=== PATIENT | female | born 1965 | race Caucasian/White ===

== ENCOUNTER 2021-11-04 08:44 | Outpatient (CLI) | payer OTHER, SELFPAY ==
--- NOTE | 2021-11-04 09:15 | CRLHL7_ITS ---
For Patients: As a result of the Century Cures Act, medical imaging exams and procedure reports are released immediately into your electronic medical record. You may view this report before your referring provider. If you have questions, please contact your health care provider. Examination / Procedure: Ultrasound guided right breast mass biopsy. Comparison: Right breast ultrasound 10/29/2021 and mammogram 10/29/2021. Technique: The procedure, risks, and alternative therapies were discussed in detail, and written informed consent was obtained. A time out was performed to verify correct patient and procedure. Patient was not able to stop Xarelto. Increased risk of bleeding was discussed with the patient. The patient was placed supine on the table. Initial ultrasound of the right breast was performed. The irregular spiculated right breast mass at the 9 o`clock position was identified with ultrasound. The biopsy site was localized. A juvenal was made on the patient`s skin. The site was prepped and draped in the usual sterile fashion. All elements of maximum sterile barrier technique were used. Soft tissues were anesthetized with 1% lidocaine. Under real time sonographic guidance, an 18 gauge biopsy needle was advanced into the mass. Five core biopsies were performed under continuous ultrasound guidance and placed in formalin. A biopsy marker was placed within the mass. Patient was taken to mammography suite for post clip placement mammogram. Please see separate report for details. The patient tolerated the procedure well without immediate postprocedural complication. Impression: Successful ultrasound guided right breast mass biopsy. Dictated by Enrique Hinojosa MD @ 11/04/2021 10:10:48 AM ----ADDENDUM---- ADDENDUM: Pathology results of RIGHT breast 9 o`clock 8 cm from the nipple ultrasound-guided core biopsy demonstrate invasive lobular carcinoma. Pathology results were reviewed with imaging findings and found concordant. Surgical and oncological management per referring physician. JACKLYN CARRILLO M.D. Diagnostic/Breast Radiologist [email or web address] FIFI/saud D& Transcribed: 3:03 p.m. ----ADDENDUM---- ADDENDUM: ACR not applicable CRL:[email or web address] (Electronically Signed)
--- NOTE | 2021-11-04 10:00 | CRLHL7_ITS ---
For Patients: As a result of the Cures Act, medical imaging exams and procedure reports are released immediately into your electronic medical record. You may view this report before your referring provider. If you have questions, please contact your health care provider. RIGHT DIAGNOSTIC POST-BIOPSY MAMMOGRAM FOR CLIP PLACEMENT CLINICAL HISTORY: Post clip placement mammogram. TECHNIQUE: RIGHT CC and ML post-clip 2D mammogram. COMPARISON FILM: Mammograms 10/29/2021. FINDINGS: Spiculated mass in the outer RIGHT breast at the 8 to 9 o`clock position. Biopsy clip is within the spiculated mass. IMPRESSION: Biopsy clip is within the spiculated mass. ACR not applicable A lay language report of this examination will be provided to the patient. Enrique Hinojosa M.D. Diagnostic/Musculoskeletal Radiologist [email or web address] jj/Dictated by: Enrique Hinojosa MD @ 11/04/2021 10:17:00 AM (Electronically Signed)
== END 2021-11-04 08:45 | disposition home or self-care (01) ==
PROVIDERS: Visit Provider Family Medicine
DX: N63.10 Unspecified lump in the right breast, unspecified quadrant (principal); C50.911 Malignant neoplasm of unspecified site of right female breast; R92.8 Other abnormal and inconclusive findings on diagnostic imaging of breast
CPT/HCPCS: 19083; 76942; 77065; 88305; 88360; 88361; A4648; A4649

== ENCOUNTER 2021-11-05 13:55 | Outpatient (RCR) | payer OTHER, SELFPAY | END 2021-11-09 23:59 | disposition home or self-care (01) | LOC: CCIC 13:55 | PROVIDERS: Visit Provider Clinical Nurse Specialist | DX: Z45.2 Encounter for adjustment and management of vascular access device (principal) | CPT/HCPCS: 99211 ==

== ENCOUNTER 2021-11-18 08:33 | Outpatient (CLI) | payer OTHER, SELFPAY | END 2021-11-18 08:34 | disposition home or self-care (01) | LOC: AMB 11-30 20:19 | PROVIDERS: Visit Provider Family Medicine | DX: R53.1 Weakness (principal); R55 Syncope and collapse; T85.838A Hemorrhage due to other internal prosthetic devices, implants and grafts, initial encounter | CPT/HCPCS: A0425; A0427 ==

== ENCOUNTER 2021-11-18 09:11 | Day surgery (SDC) | payer OTHER, SELFPAY ==
[2021-11-18] VITALS (39 sets, daily range): BP systolic 76–148; BP diastolic 46–86; PULSE 52–80; RESP 12–28; TEMP 35.7–37.6; O2SAT 93–98; BMI 36.9
[2021-11-18] MEDS: 0.9 % SODIUM CHLORIDE 1000 ml 1,000 ML IV (09:40)
--- NOTE | 2021-11-18 09:59 | CRLHL7_ITS ---
For Patients: As a result of the Century Cures Act, medical imaging exams and procedure reports are released immediately into your electronic medical record. You may view this report before your referring provider. If you have questions, please contact your health care provider. Indication: S/P RT MASTECTOMY 11/17/21 FALL. BLEEDING Technique: Postcontrast CT chest, abdomen and pelvis. 100 cc Isovue 370 intravenous contrast. Please note that all CT scans at this facility use dose modulation, iterative reconstruction, and/or weight-based dosing when appropriate to reduce radiation dose to as low as reasonably achievable. Comparison: None Findings: In the chest, postoperative changes of right mastectomy are present including expected mild subcutaneous emphysema. A right lateral approach drainage catheter is present within the subcutaneous fat of the right anterior hemithorax. Intact Port-A-Cath. There is a right lateral chest wall hematoma measuring 13.3 x 2.9 cm in transverse dimensions. This appears to connect to a more superior collection of ill-defined fluid near the upper right chest wall measuring 3.6 cm. There is no underlying rib fracture. No pneumothorax or pulmonary infiltrate. Mild dependent atelectasis noted in both lung bases. No mediastinal, hilar or left axillary adenopathy. Postoperative changes of right axillary lymph node dissection are present. No pleural or pericardial effusion. In the abdomen/pelvis, mild hepatic steatosis. No intrahepatic lesion. Gallbladder normal. Normal adrenal glands and kidneys. Normal spleen and pancreas. Incidental small hiatal hernia. No retroperitoneal or mesenteric adenopathy. Small 1 centimeter umbilical hernia containing fat. Fonseca catheter in the bladder. Mild colonic diverticulosis. No diverticulitis. No bowel obstruction or free intraperitoneal air. The appendix is normal. A right lower quadrant abdominal wall hernia is present containing fat measuring 2.3 cm located just lateral to the inferior rectus muscles. Mild degenerative changes are present. No fracture. Impression: Right chest wall subcutaneous hematoma status post mastectomy 1 day prior. Hematoma measures approximately 13.3 cm and extends into the right upper chest wall. No underlying rib fracture or pleural effusion. No traumatic injury to the abdomen or pelvis. 2.3 centimeter fat filled spigelian hernia on the right. Small hiatal hernia and umbilical hernia also noted. Reviewed with Dr. Moreno 12:30 p.m. 11/18/2021. Please note that all CT scans at this facility use dose modulation, iterative reconstruction, and/or weight-based dosing when appropriate to reduce radiation dose to as low as reasonably achievable. Dictated by Manpreet De León MD @ 11/18/2021 12:38:56 PM (Electronically Signed)
--- NOTE | 2021-11-18 09:59 | CRLHL7_ITS ---
For Patients: As a result of the Century Cures Act, medical imaging exams and procedure reports are released immediately into your electronic medical record. You may view this report before your referring provider. If you have questions, please contact your health care provider. INDICATION: Fall and Bleeding TECHNIQUE: Chest 1 view COMPARISON: 07/26/2019 FINDINGS: Cardiovascular and mediastinum: Heart size and vasculature are normal in caliber and appearance. Lungs and pleural spaces: Lungs are clear. No sign of infiltrate or mass. No sign of pleural effusion. No pneumothorax. Bones and soft tissues: Right internal jugular approach port catheter is present. Postop changes to the right axilla. IMPRESSION: No acute findings. Dictated by Manpreet De León MD @ 11/18/2021 11:25:13 AM (Electronically Signed)
--- NOTE | 2021-11-18 09:59 | CRLHL7_ITS ---
For Patients: As a result of the Century Cures Act, medical imaging exams and procedure reports are released immediately into your electronic medical record. You may view this report before your referring provider. If you have questions, please contact your health care provider. Indication: Fall, brain cancer status post mastectomy Technique: Volumetric multidetector CT images of the head were obtained without the administration of low osmolar intravenous contrast. Comparison: CT head July 31, 2020 Findings: There is no intra-axial or extra-axial fluid collection. There is improved mass effect of the right frontal lobe from comparison exam. There is mild ex vacuo dilatation of the right lateral ventricle. There is a prior craniotomy and likely resection of previously seen right frontal lobe mass with encephalomalacia and peripheral leukomalacia. Otherwise, the brain parenchyma is preserved in attenuation and zamora-white differentiation. The orbits and their contents are grossly within normal limits. Postoperative changes of the right temporal bone status post craniotomy. The paranasal sinuses are clear. The mastoid air cells are well aerated. Impression: Prior craniotomy and encephalomalacia of the right frontal lobe status post resection of previously seen mass. No definite acute intracranial abnormality or new metastatic changes appreciated. Please note that all CT scans at this facility use dose modulation, iterative reconstruction, and/or weight-based dosing when appropriate to reduce radiation dose to as low as reasonably achievable. Dictated by Rafa Goins MD @ 11/18/2021 12:36:34 PM (Electronically Signed)
--- NOTE | 2021-11-18 09:59 | CRLHL7_ITS ---
For Patients: As a result of the Century Cures Act, medical imaging exams and procedure reports are released immediately into your electronic medical record. You may view this report before your referring provider. If you have questions, please contact your health care provider. Indication: Fall Technique: Volumetric multidetector CT images of the cervical spine were obtained without the administration of IV contrast. Comparison: None available. Findings: The cervical vertebral body heights are grossly maintained. There is straightening of the normal cervical lordosis without significant spondylolisthesis. There is no displaced fracture or dislocation. There is mild degenerative disc disease with disc height loss and marginal osteophyte formation. There is mild facet arthrosis. The paraspinous soft tissues are grossly within normal limits. Impression: Mild degenerative changes of the cervical spine without acute osseous abnormality. Please note that all CT scans at this facility use dose modulation, iterative reconstruction, and/or weight-based dosing when appropriate to reduce radiation dose to as low as reasonably achievable. Dictated by Rafa Goins MD @ 11/18/2021 12:33:23 PM (Electronically Signed)
[2021-11-18 10:05] LABS: Eosinophils Percent Auto 0.2 % (0.0-7.0); Hemoglobin* 10.8 gm/dL (12.0-16.0); Immature Granulocytes Abs Auto 0.03 K/uL (0.00-0.30); Lymphocytes Percent Auto 5.7 % (20-44); Mean Corpuscular HGB Conc 33 gm/dL (32-36); Mean Corpuscular Hemoglobin 28 pg (26-34); Mean Corpuscular Volume 86 fL (80-100); Neutrophils Percent Auto 87.9 % (42.0-72.0); Platelet Count* 164 K/uL (140-440); RDW Coefficient of Variation % 13.1 % (11.5-15.5); Red Blood Count 3.83 m/uL (4.00-5.20)
[2021-11-18 10:09] LABS: Chloride* 108 mmol/L (96-114); Potassium* 4.1 mmol/L (3.6-5.1); Slide Review Reflex No; Sodium* 138 mmol/L (135-149); White Blood Count* 12.27 K/uL (4.50-11.00)
[2021-11-18 10:11] LABS: Creatinine* 0.7 mg/dL (0.5-1.5); Est. Creatinine Clearance* 78.41; Estimated Glomerular Filt Rate 102 ml/min
[2021-11-18 10:12] LABS: Blood Urea Nitrogen* 23 mg/dL (7-30); Calcium* 8.3 mg/dL (8.4-10.6); Carbon Dioxide* 21 mmol/L (20-32); Glucose* 134 mg/dL (60-115); INR 1.17 (0.91-1.10); Prothrombin Time 15.3 Seconds
[2021-11-18] MEDS: TRANEXAMIC ACID 100 MG/ML INJ 1000 MG IV (10:15)
[2021-11-18 10:22] LABS: Partial Thromboplastin Time* 24 Seconds (23-33)
--- NOTE | 2021-11-18 10:30 | ED.NURSE ---
Fonseca placed by EVER Cid
--- NOTE | 2021-11-18 10:43 | ED.NURSE ---
Dr Moreno at bedside.
--- NOTE | 2021-11-18 11:02 | ED.FALL ---
HPI - Fall General Date Seen: 11/18/21 Chief Complaint: Post Op Complication Stated Complaint: Bleeding Time Seen by Provider: 11/18/21 09:31 Source: patient and family Mode of arrival: EMS Limitations: no limitations History of Present Illness HPI Narrative: Patient is a 55-year-old female who had a syncopal episode at home. She fell on her right side, remembers the fall, or shortly afterwards. She landed on the right side of her chest which unfortunately is where she you underwent a right-sided mastectomy for breast cancer yesterday at [facility]. Her surgeon there was Dr. Solares. She felt faint with pain on the right side of her chest, and her Jesus-Bardales drain started draining bright red blood. It has been empty 14 times since this occurred. For approximately 12-1400 mL. Before this she only emptied it once. She denies any head, neck, abdominal, pelvic or extremity discomfort. Her only pain is on the right side of her chest. She is not nauseous, but did take a hydrocodone after this occurred for the pain. Past medical history of the breast cancer, brain cancer, DVT, anticoagulation but stopped Wednesday last week. With the Xarelto. Onset (ago): minute(s) (Thirty) Fall from: standing Fall witnessed: yes, by family Place fall occurred: home Loss of consciousness: Yes Length of LOC: second(s) Prolonged down time: no and unclear Symptoms prior to fall: lightheadedness and dizziness Context: other (She vehemently denies that this was related to a seizure she does have a history of these) Location of injury: chest Severity: severe Quality: sharp Associated symptoms (after fall): weakness and lightheaded Related Data Home Medications Medication Instructions Recorded Confirmed albuterol sulfate 90 mcg/actuation inhalation 11/18/21 aerosol inhaler (Ventolin HFA) amlodipine 5 mg tablet 5 mg PO DAILY 11/18/21 11/18/21 cephalexin 500 mg capsule mg 11/18/21 levetiracetam 1,000 mg tablet 1,000 mg PO BID 11/18/21 11/18/21 omeprazole 20 mg capsule,delayed 20 mg PO DAILY 11/18/21 11/18/21 release oxycodone 5 mg tablet 5 mg PO PRN 11/18/21 rivaroxaban 20 mg tablet (Xarelto) 20 mg PO Q24H 11/18/21 11/18/21 Allergies Allergy/AdvReac Type Severity Reaction Status Date / Time sulfur [From Sulfur-8] Allergy Unknown Verified 11/04/21 09:47 Review of Systems Status of ROS: Reports: 6 or more systems reviewed and unremarkable except as noted in History and below [facility] Medical History (Updated 11/18/21 @ 12:38 by Aristeo Fisher MD) Arthritis Asthma Breast cancer, right Diverticulitis large intestine GERD (gastroesophageal reflux disease) Glioblastoma Obesity NARGIS (obstructive sleep apnea) Surgical History (Updated 11/18/21 @ 12:38 by Aristeo Fisher MD) S/P craniotomy S/P hysterectomy S/P right mastectomy Status post medial meniscus repair Social History (Updated 11/18/21 @ 12:11 by Bambi Moreno MD) Narrative: 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 She is a former smoker. No alcohol. Smoking Status: Former smoker Do you use any of these nicotine containing products: None Second hand tobacco smoke exposure: No How often do you have a drink containing alcohol: never How many standard drinks containing alcohol do you have on a typical day: 1 or 2 How often do you have six or more drinks on one occasion: Never AUDIT-C Alcohol total score: 0 Non-prescribed substance use: denies use service: No Exam Narrative: Exam Narrative: She is brought into the emergency room initially she was the [facility] in stable 1 trauma room, immediately after arrival. Blood pressures are some soft, but now have come up. She is draining bright red blood out of her NATALIYA drain on the right side of her chest. She is alert and oriented but whenever she sits up she feels dizzy. Underwent surgery yesterday at [facility] same-day surgery and left the hospital. Her pupils are equal round reactive to light her TMs are normal there is no evidence of any trauma over head or neck, her neck has good range of motion. Her mouth is normal with no evidence of any biting of her tongue. Suggestive of seizure. Chest is good air entry bilaterally. Slightly decreased on the right she does splint, she has a large area swelling of just inferior to her right axilla. Consistent with fluid, her surgery line looks intact, with no blood coming out of it, but again the Jesus-Bardales drain has 50 mL my nurses event did this twice and she arrive. And was empty 9 times by EMS. Posterior chest shows no tenderness to palpation, she does have air entry bilaterally, no wheezes or crackles noted, no tenderness to palpation over her cervical thoracic or lumbar spines. Her abdomen is otherwise soft, no guarding a past been no megaly, pelvis is normal stable. Her extremities are all normal moves for full range of motion with normal cap refill and neurologically intact. Const: Vital Signs, click to edit/add: Vital Signs - 24 hr 11/18/21 09:12 11/18/21 10:29 11/18/21 10:30 Temperature 96.3 F L 98.0 F Pulse Rate 52 L 53 L Pulse Rate [Left P ulse Oximeter] 69 Respiratory Rate 20 20 20 Blood Pressure 110/61 106/57 L Blood Pressure [Le ft Upper Arm] 96/57 L Pulse Oximetry 96 94 96 Oxygen Delivery [facility] Room Air 11/18/21 10:45 11/18/21 11:14 11/18/21 11:53 Temperature 97.6 F 97.6 F 97.9 F Pulse Rate 70 63 73 Pulse Rate [Left P ulse Oximeter] Respiratory Rate 20 20 20 Blood Pressure 103/58 L 115/68 106/59 L Blood Pressure [Le ft Upper Arm] Pulse Oximetry 97 97 95 Oxygen Delivery [facility] 11/18/21 11:56 11/18/21 09:30 11/18/21 12:12 Temperature 97.6 F 97.8 F Pulse Rate 70 64 Pulse Rate [Left P ulse Oximeter] 67 Respiratory Rate 20 20 18 Blood Pressure 106/59 L 109/65 Blood Pressure [Le ft Upper Arm] 76/46 L Pulse Oximetry 96 [facility] 11/18/21 09:39 11/18/21 09:45 11/18/21 09:56 Temperature Pulse Rate Pulse Rate [Left P ulse Oximeter] 67 62 62 Respiratory Rate 20 20 20 Blood Pressure Blood Pressure [Le ft Upper Arm] 92/50 L 97/55 L 92/55 L Pulse Oximetry 93 94 96 Oxygen Delivery [facility] Room Air Room Air Room Air 11/18/21 10:08 11/18/21 10:19 11/18/21 10:30 Temperature Pulse Rate Pulse Rate [Left P ulse Oximeter] 62 61 60 Respiratory Rate 20 28 H 20 Blood Pressure Blood Pressure [Le ft Upper Arm] 90/54 L 110/61 106/57 L Pulse Oximetry Oxygen Delivery Me thod Room Air 11/18/21 10:45 11/18/21 11:00 11/18/21 11:15 Temperature Pulse Rate Pulse Rate [Left P ulse Oximeter] 68 58 L 61 Respiratory Rate 14 18 18 Blood Pressure Blood Pressure [Le ft Upper Arm] 103/58 L 103/66 107/65 Pulse Oximetry 98 98 98 Oxygen Delivery Me thod Room Air Room Air Room Air 11/18/21 11:52 11/18/21 12:00 11/18/21 12:15 Temperature 97.9 F 97.8 F Pulse Rate Pulse Rate [Left P ulse Oximeter] 61 61 64 Respiratory Rate 20 20 18 Blood Pressure Blood Pressure [Le ft Upper Arm] 106/59 L 125/68 109/65 Pulse Oximetry 96 96 95 Oxygen Delivery Me thod Room Air Room Air Room Air Documenting provider has reviewed patient's vital signs: yes Course Course Hospital Course: Patient is initially seen, given her blood loss, she was immediately type and screen, saline lock along with her port was used. IV fluids are started, she received TXA, we held off on giving her Kcentra as she has been off the Xarelto for some time. I really wrapped her chest, with Gilbert wrap after I 1st ultrasound of the area and found an area greater than 8 x 10 cm of fluid, likely blood, on the posterior chest margin. Or superficial to the chest. I spoke to her surgeon Dr. Solares, she suggested given her unstable status that we talked our general surgeon which I did Dr. Moreno, Dr. Simeon attended her here in the resuscitation [place]. She rewrapped her chest, she agreed with the blood the fluids, will take her to the OR, she did want to get some imaging which I am in agreement with, because of a history the trauma. And the other medical concomitant issues. Her blood pressure has improved here, over 100 systolic. Reevaluation(s) Reevaluation #1: Patient's blood pressure is improved, with 1 unit of blood, 2nd unit now starting, she is stable enough that I think we can get CT scan to rule out any pulmonary, intra-abdominal, or cervical spine her head CT issues. After this is red, we will likely have her go to the operating room with Dr. Moreno. Patient her or apprised of this, I did speak to Dr. Solares her surgeon who called back. Time: 11:50 Vital Signs Vital signs: Initial Vital Signs Temperature 96.3 F L 11/18/21 09:12 Temperature Source Temporal Artery Scan 11/18/21 09:12 Pulse Rate 69 11/18/21 09:12 Respiratory Rate 20 11/18/21 09:12 Blood Pressure 96/57 L 11/18/21 09:12 Blood Pressure Mean 70 11/18/21 09:12 Pulse Oximetry 96 11/18/21 09:12 Oxygen Delivery Method 11/18/21 09:12 Vital Signs Temperature 96.3 F L 11/18/21 09:12 Pulse Rate 69 11/18/21 09:12 Respiratory Rate 20 11/18/21 09:12 Blood Pressure 96/57 L 11/18/21 09:12 Pulse Oximetry 96 11/18/21 09:12 Oxygen Delivery Method 11/18/21 09:12 Temperature 97.8 F 11/18/21 12:15 Pulse Rate 64 11/18/21 12:15 Respiratory Rate 18 11/18/21 12:15 Blood Pressure 109/65 11/18/21 12:15 Pulse Oximetry 95 11/18/21 12:15 Oxygen Delivery Method 11/18/21 12:15 MDM - Fall MDM Narrative Medical decision making narrative: Patient is seen for syncopal episode and also acute blood loss secondary to a bleed within her tissue on her right mastectomy. She is being taken to the OR to explore this and stop the bleeding. She has lost approximately 1700 mL via the Jesus-Bardales drain on the right. She has received 2 units of packed red blood cells, Dr. Simeon will take her to the operating room, I reviewed the CT of her head, cervical spine, chest abdomen pelvis do not see any acute abnormality here, except the collection of fluid on the right side of her chest. Her EKG is within normal limits no acute findings. Differential Diagnosis Differential diagnosis: Likely syncope Medical Records Attestation: I reviewed the patient's medical records. Lab Data Attestation: I reviewed the patient's lab results. Labs: Lab Results 11/18/21 11/18/21 11/18/21 Range/Units 09:37 09:37 09:37 WBC 12.27 H (4.50-11.00) K/uL RBC 3.83 L (4.00-5.20) m/uL Hgb 10.8 L (12.0-16.0) gm/dL Hct 33.0 (33.0-51.0) % MCV 86 (80-100) fL MCH 28 (26-34) pg MCHC 33 (32-36) gm/dL RDW Coeff of Moni 13.1 (11.5-15.5) % Plt Count 164 (140-440) K/uL Neut % (Auto) 87.9 H (42.0-72.0) % Lymph % (Auto) 5.7 L (20-44) % [place] % (Auto) 6.0 (0.0-11.0) % Eos % (Auto) 0.2 (0.0-7.0) % Baso % (Auto) 0.0 (0.0-3.0) % Neut # (Auto) 10.80 H (1.7-7.0) K/uL Lymph # (Auto) 0.70 L (0.90-2.90) K/uL [place] # (Auto) 0.70 (0.00-0.90) K/UL Eos # (Auto) 0.00 (0.00-0.50) K/uL Baso # (Auto) 0.00 (0.00-0.30) K/uL Abs Immat Gran (auto) 0.03 (0.00-0.30) K/uL INR 1.17 H (0.91-1.10) APTT 24 (23-33) Seconds Sodium 138 (135-149) mmol/L Potassium 4.1 (3.6-5.1) mmol/L Chloride 108 (96-114) mmol/L Carbon Dioxide 21 (20-32) mmol/L BUN 23 (7-30) mg/dL Creatinine 0.7 (0.5-1.5) mg/dL Estimated Creat Clear 78.41 Estimated GFR 102 ml/min Glucose 134 H (60-115) mg/dL Calcium 8.3 L (8.4-10.6) mg/dL SARS-CoV-2 Ag (Rapid) (Negative) Blood Type Antibody Screen Crossmatch (AHG) 11/18/21 11/18/21 Range/Units 09:37 10:39 WBC (4.50-11.00) K/uL RBC (4.00-5.20) m/uL Hgb (12.0-16.0) gm/dL Hct (33.0-51.0) % MCV (80-100) fL MCH (26-34) pg MCHC (32-36) gm/dL RDW Coeff of Moni (11.5-15.5) % Plt Count (140-440) K/uL Neut % (Auto) (42.0-72.0) % Lymph % (Auto) (20-44) % [place] % (Auto) (0.0-11.0) % Eos % (Auto) (0.0-7.0) % Baso % (Auto) (0.0-3.0) % Neut # (Auto) (1.7-7.0) K/uL Lymph # (Auto) (0.90-2.90) K/uL [place] # (Auto) (0.00-0.90) K/UL Eos # (Auto) (0.00-0.50) K/uL Baso # (Auto) (0.00-0.30) K/uL Abs Immat Gran (auto) (0.00-0.30) K/uL INR (0.91-1.10) APTT (23-33) Seconds Sodium (135-149) mmol/L Potassium (3.6-5.1) mmol/L Chloride (96-114) mmol/L Carbon Dioxide (20-32) mmol/L BUN (7-30) mg/dL Creatinine (0.5-1.5) mg/dL Estimated Creat Clear Estimated GFR ml/min Glucose (60-115) mg/dL Calcium (8.4-10.6) mg/dL SARS-CoV-2 Ag (Rapid) negative (Negative) Blood Type O Negative Antibody Screen NEGATIVE Crossmatch (AHG) See Detail ECG Data Attestation: I personally reviewed and interpreted this ECG as follows: ECG interpretation date: 11/18/21 Interpretation: EKG shows normal sinus rhythm with no acute changes Critical Care Time Critical Care Time Critical Care Time: Yes Attestation: The patient required my highest level preparedness to intervene emergently and I personally spent this critical care time directly and personally managing the patient. This critical care time included: Obtaining a history; Examining the patient; Pulse oximetry; Ordering and reviewing of studies; Arranging urgent treatment with development of a management plan; Evaluation of patients response to treatment; Frequent reassessment discussions with other providers. This critical care time was performed to assess and manage the high probability of imminent life-threatening deterioration that could result in multiorgan failure. It was exclusive of separate billable procedures and treating other patients and teaching time. Total Critical Care Time in Minutes: 60 Discharge Plan Discharge Clinical Impression: S/P right mastectomy, Syncope, Acute hemorrhage, Hematoma and contusion Patient Disposition: Admitted As Inpatient Prescriptions: No Action amlodipine 5 mg tablet 5 mg PO DAILY albuterol sulfate [Ventolin HFA] 90 mcg/actuation HFA aerosol inhaler INHALATION Label Comments: INHALE 1 TO 2 PUFFS BY MOUTH EVERY 4 HOURS NEEDED FOR DIFFICULTY BREATHING. cephalexin 500 mg capsule levetiracetam 1,000 mg tablet 1,000 mg PO BID omeprazole 20 mg capsule,delayed release(DR/EC) 20 mg PO DAILY oxycodone 5 mg tablet 5 mg PO PRN Xarelto 20 mg tablet 20 mg PO Q24H Follow Up/Referrals: Provider,Not a Local [Primary Care Provider] -
--- NOTE | 2021-11-18 11:12 | PM.GSCN ---
History of Present Illness Consult details Date Seen: 11/18/21 Consult date: 11/18/21 Narrative: The patient is a 55-year-old female who presents to the emergency department after syncope and fall 1 day status post right mastectomy and sentinel node biopsy done at [facility] for invasive lobular carcinoma. She states that she was discharged home the date of surgery and was doing fine. This morning around 8:00 a.m. she got up and was dizzy and fell and landed on her right side. Around that time her noticed significantly increased drain output. She came in to be seen and was syncopal in the emergency department as well. She complains of pain on the right chest at the surgical site. She states that she does not have lightheadedness at baseline. Currently receiving 1 unit of blood. Her chest was wrapped with 2 Gilbert wraps. She received tranexamic acid. Review of Systems Status of ROS: Reports: 6 or more systems reviewed and unremarkable except as noted in History and below [facility] Medical History (Updated 11/18/21 @ 12:38 by Aristeo Fisher MD) Arthritis Asthma Breast cancer, right Diverticulitis large intestine GERD (gastroesophageal reflux disease) Glioblastoma Obesity NARGIS (obstructive sleep apnea) Surgical History (Updated 11/18/21 @ 12:38 by Aristeo Fisher MD) S/P craniotomy S/P hysterectomy S/P right mastectomy Status post medial meniscus repair Social History (Updated 11/18/21 @ 12:11 by Bambi Moreno MD) Narrative: 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 She is a former smoker. No alcohol. Smoking Status: Former smoker Do you use any of these nicotine containing products: None Second hand tobacco smoke exposure: No How often do you have a drink containing alcohol: never How many standard drinks containing alcohol do you have on a typical day: 1 or 2 How often do you have six or more drinks on one occasion: Never AUDIT-C Alcohol total score: 0 Non-prescribed substance use: denies use service: No Meds Home Medications and Allergies Home Medications Medication Instructions Recorded Confirmed Type albuterol sulfate 90 mcg/actuation inhalation 11/18/21 History aerosol inhaler (Ventolin HFA) amlodipine 5 mg tablet 5 mg PO DAILY 11/18/21 11/18/21 History cephalexin 500 mg capsule mg 11/18/21 History levetiracetam 1,000 mg tablet 1,000 mg PO BID 11/18/21 11/18/21 History omeprazole 20 mg capsule,delayed 20 mg PO DAILY 11/18/21 11/18/21 History release oxycodone 5 mg tablet 5 mg PO PRN 11/18/21 History rivaroxaban 20 mg tablet (Xarelto) 20 mg PO Q24H 11/18/21 11/18/21 History Allergies Allergy/AdvReac Type Severity Reaction Status Date / Time sulfur [From Sulfur-8] Allergy Unknown Verified 11/04/21 09:47 Exam Narrative: Exam Narrative: General appearance: Alert, cooperative, and in no distress Eyes: PERRLA, eye lids clear, and sclera white HENT Head: Normocephalic Ears: External ears normal Pulmonary: Breathing nonlabored on room air Breast right breast mastectomy incision without erythema. Fullness on the lateral chest wall. Drain with sanguinous output. Cardiovascular Heart: Regular rate and rhythm Extremities: Clammy and cool Gastrointestinal Abdominal: Soft, nontender nondistended Musculoskeletal: Extremities: Upper: Both upper extremities have normal joint range of motion and intact strength. Lower: Both lower extremities have normal joint range of motion and intact strength. Skin: Normal skin color, texture, and turgor. No rashes or lesions. Neurologic: No focal deficits Psychiatric: Alert, oriented, cooperative, normal affect. Const: Vital Signs, click to edit/add: Vital Signs - 24 hr 11/18/21 09:12 11/18/21 10:29 11/18/21 10:30 Temperature 96.3 F L 98.0 F Pulse Rate 52 L 53 L Pulse Rate [Left P ulse Oximeter] 69 Respiratory Rate 20 20 20 Blood Pressure 110/61 106/57 L Blood Pressure [Le ft Upper Arm] 96/57 L Pulse Oximetry 96 94 96 Oxygen Delivery Me thod Room Air 11/18/21 10:45 Temperature 97.6 F Pulse Rate 70 Pulse Rate [Left P ulse Oximeter] Respiratory Rate 20 Blood Pressure 103/58 L Blood Pressure [Le ft Upper Arm] Pulse Oximetry 97 Oxygen Delivery Me thod Results Labs Labs: Abnormal lab results 11/18/21 11/18/21 11/18/21 Range/Units 09:37 09:37 09:37 WBC 12.27 H (4.50-11.00) K/uL RBC 3.83 L (4.00-5.20) m/uL Hgb 10.8 L (12.0-16.0) gm/dL Neut % (Auto) 87.9 H (42.0-72.0) % Lymph % (Auto) 5.7 L (20-44) % Neut # (Auto) 10.80 H (1.7-7.0) K/uL Lymph # (Auto) 0.70 L (0.90-2.90) K/uL INR 1.17 H (0.91-1.10) Glucose 134 H (60-115) mg/dL Calcium 8.3 L (8.4-10.6) mg/dL Crossmatch ([facility]) 11/18/21 Range/Units 09:37 WBC (4.50-11.00) K/uL RBC (4.00-5.20) m/uL Hgb (12.0-16.0) gm/dL Neut % (Auto) (42.0-72.0) % Lymph % (Auto) (20-44) % Neut # (Auto) (1.7-7.0) K/uL Lymph # (Auto) (0.90-2.90) K/uL INR (0.91-1.10) Glucose (60-115) mg/dL Calcium (8.4-10.6) mg/dL Crossmatch ([facility]) See Detail Diabetes panel 11/18/21 Range/Units 09:37 Sodium 138 (135-149) mmol/L Potassium 4.1 (3.6-5.1) mmol/L Chloride 108 (96-114) mmol/L Carbon Dioxide 21 (20-32) mmol/L BUN 23 (7-30) mg/dL Creatinine 0.7 (0.5-1.5) mg/dL Glucose 134 H (60-115) mg/dL Calcium 8.3 L (8.4-10.6) mg/dL Calcium panel 11/18/21 Range/Units 09:37 Calcium 8.3 L (8.4-10.6) mg/dL Pituitary panel 11/18/21 Range/Units 09:37 Sodium 138 (135-149) mmol/L Potassium 4.1 (3.6-5.1) mmol/L Chloride 108 (96-114) mmol/L Carbon Dioxide 21 (20-32) mmol/L BUN 23 (7-30) mg/dL Creatinine 0.7 (0.5-1.5) mg/dL Glucose 134 H (60-115) mg/dL Calcium 8.3 L (8.4-10.6) mg/dL Adrenal panel 11/18/21 Range/Units 09:37 Sodium 138 (135-149) mmol/L Potassium 4.1 (3.6-5.1) mmol/L Chloride 108 (96-114) mmol/L Carbon Dioxide 21 (20-32) mmol/L BUN 23 (7-30) mg/dL Creatinine 0.7 (0.5-1.5) mg/dL Glucose 134 H (60-115) mg/dL Calcium 8.3 L (8.4-10.6) mg/dL All other labs normal. Imaging Chest x-ray: report reviewed (Diagnostic Imaging Report Patient: Donna Ruiz [facility]#: [id number]: 1965Acct:[id number]: EDService Date: 11/18/21Attending Dr: Ordering Physician: Aristeo Fisher M.D. Date of Service: 11/18/21 Procedure(s): XR chest 1V portable Accession Number(s): [id number] cc: Provider,) and image reviewed Assessment and Plan Assessment and plan (1) Syncope: Status: Acute (2) Acute hemorrhage: Status: Acute (3) Breast cancer, right: Status: Acute (4) S/P right mastectomy: Status: Acute (5) Asthma: Status: Acute Plan The patient is a 55-year-old female who is 1 day status post mastectomy with right axillary sentinel lymph node biopsy now with syncopal episode either caused by a resulting in hematoma and active hemorrhage from the surgical site. She is receiving 1 unit of blood. Blood pressure is stable in the 100s systolic. She has been bradycardic. She is not beta blocked. Planning on CT head C-spine chest abdomen pelvis and resuscitation and then will proceed to the OR for hematoma evacuation. Plan was discussed with the patient and her . They are agreeable to proceed. We will admit to the hospital postoperatively and asked hospitalist to see the patient.
--- NOTE | 2021-11-18 11:31 | ED.NURSE ---
Pt to radiology
[2021-11-18 11:36] LABS: SARS Antigen* negative (Negative)
--- NOTE | 2021-11-18 12:55 | ED.NURSE ---
Pt had 300cc of bloody drainage from Jimenez drain during her ER stay
--- NOTE | 2021-11-18 12:55 | ED.NURSE ---
Pt to OR with small amount of blood left to infuse.
[2021-11-18] MEDS: CEFAZOLIN 2 GM INJ IVP (13:08)
[2021-11-18] MEDS: BUPIVACAINE 0.25% 30 ML INJECTION (13:43)
--- NOTE | 2021-11-18 14:21 | W.ANESCHARGE ---
Anesthesia Charges Start Date/Time Anesthesia Start Date: 11/18/21 Anesthesia Start Time: 12:56 Stop Date/Time Anesthesia Stop Date: 11/18/21 Anesthesia Stop Time: 14:18 Summary Emergency: Yes
[2021-11-18] MEDS: ONDANSETRON 2 MG/ML inj IVP (14:53)
--- NOTE | 2021-11-18 15:04 | PM.GSPRC ---
Operative Note Date of procedure: 11/18/21 Type of Procedure: Evacuation right mastectomy hematoma Procedure Description: After discussing the risks and benefits of the procedure, the patient signed informed consent.? The operative site was marked and the patient was brought to the operating room and placed on the operating table in supine position.? Care was taken to pad the patient's pressure points.?? The patient was then intubated by anesthesia.?? The patient's prior surgical drain was removed. The operative site was then prepped and draped in the usual sterile fashion.? A time-out was then performed. The glue was removed from the majority of the skin and the incision was opened approximately 3/4, leaving the medial aspect closed. Approximately 100 mL of hematoma were removed. There was no obvious source of bleeding, however at the lateral aspect of the mastectomy, there was some very mild diffuse oozing. This was controlled with cautery. The entire wound cavity was examined for bleeding. Hemostasis appeared excellent. The wound was then irrigated. No further bleeding was noted. The wound was then irrigated with Betadine. A 19 Pashto round Kings drain was then placed in the incision cavity through the prior drain incision site. This was secured in place with 2-0 nylon. The dermis was then closed with interrupted 3-0 Vicryl sutures. The skin was then closed with running Monocryl subcuticular suture. Sterile dressings were applied. ? The patient was then woken and transported to the recovery area in stable condition. ? The patient tolerated the procedure well. Findings: Approximately 300 mL of hematoma were evacuated without obvious ongoing bleeding. Implants: 19 Pashto right chest wall drain. Anesthesia: GETA Surgeon: Bambi Moreno MD Estimated blood loss (mL): 1 Condition: stable Disposition: PACU
--- NOTE | 2021-11-18 15:21 | SUR.PHASEI ---
THIS DIVING COACH ADMINISTERED 150 ML OF NORMAL SALINE TO THIS PATIENT WHILE IN PACU.
--- NOTE | 2021-11-18 15:22 | W.ANESCHARGE ---
Anesthesia Charges Start Date/Time Anesthesia Start Date: 11/18/21 Anesthesia Start Time: 12:56 Stop Date/Time Anesthesia Stop Date: 11/18/21 Anesthesia Stop Time: 14:18 Summary Emergency: Yes
--- NOTE | 2021-11-18 15:54 | P.IMCN_ITS ---
Date of Consult Patient: [facility] Patient Consult date: 11/18/21 Requesting Physician: General Surgery (Josh) Primary Care Provider: Meka Bojorquez MD Consult Narrative Reason for consult: Syncope Narrative: Donna Cheung is a 55 year old female had syncope and fell today. She had a mastectomy yesterday at an [facility] facility as a day medical and was sent home. She tells me that overnight her had to empty the NATALIYA drain very frequently and that he kept commenting that it was all blood. She says that at 3:00 a.m. she was exhausted from the frequency with which they had to empty the drain through the night, and she asked to go to the emergency department, but he convinced her to wait until morning to see how she felt. Got up to go to bathroom from bed around 8 am, got about 5 steps when both legs gave out. Had to drag herself over to the dresser to get phone and called her dad who lives with her. They called the ambulance than and when the centerpuncher came as they were sliding her over from her bed onto the gurney, she blacked out. She tells me that she has never passed out before today. She recalls feeling a little lightheaded upon her arrival to the emergency department this morning, but has no lightheadedness now. She also tells me that when she got the 2 units of blood today she suddenly felt much better. Review of Systems Const: Reports: fatigue (since brain cancer last year) and other (cold all the time); Denies: fever, chills or night sweats Eyes: Denies: change in vision, blurry vision or blind spots ENMT: Reports: throat pain (since surgery - from intubation); Denies: difficulty swallowing Cardio: Denies: chest pain, palpitations or shortness of breath with exertion Resp: Reports: cough (today after 2nd surgery); Denies: shortness of breath or wheezing GI: Reports: nausea (since surgery today); Denies: abdominal pain, vomiting, diarrhea or difficulty swallowing : Reports: decreased urine ouput and other (thirsty today); Denies: painful urination or urinary frequency Integ/Breast: Denies: rash Neuro: Reports: headache (little stress headache this evening) Endo: Reports: excessive thirst (today) and fatigue (since brain cancer last year) Allergy/Immuno: Denies: wheezing PFSH PFSH Medical History (Updated 11/18/21 @ 19:29 by Rosario Gilman MD) Arthritis Arthritis of knee, left ASCUS of cervix with negative high risk HPV Asthma Bone spur of foot Breast cancer, right Chronic fatigue Diverticulitis, colon DVT (deep venous thrombosis) GERD (gastroesophageal reflux disease) Glioblastoma Obesity NARGIS (obstructive sleep apnea) Port-A-Cath in place Surgical History (Updated 11/18/21 @ 16:39 by Rosario Gilman MD) H/O colonoscopy H/O colonoscopy History of esophagogastroduodenoscopy (EGD) S/P craniotomy S/P hysterectomy S/P right mastectomy Status post medial meniscus repair Family History Mother COPD (chronic obstructive pulmonary disease) Lung cancer Social History (Updated 11/18/21 @ 19:05 by Rosario Gilman MD) Narrative: 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 She is a former smoker. No alcohol. Quit smoking 03/09/2020. Smoking Status: Former smoker Do you use any of these nicotine containing products: None Second hand tobacco smoke exposure: No How often do you have a drink containing alcohol: never How many standard drinks containing alcohol do you have on a typical day: 1 or 2 How often do you have six or more drinks on one occasion: Never AUDIT-C Alcohol total score: 0 Non-prescribed substance use: denies use service: No Meds Home Medications and Allergies Home Medications Medication Instructions Recorded Confirmed Type albuterol sulfate 90 mcg/actuation 2 puff inhalation Q4H PRN 11/18/21 11/18/21 History aerosol inhaler (Ventolin HFA) amlodipine 5 mg tablet 5 mg PO DAILY 11/18/21 11/18/21 History cephalexin 500 mg capsule 500 mg PO Q8H 11/18/21 11/18/21 History levetiracetam 1,000 mg tablet 1,000 mg PO BID 11/18/21 11/18/21 History omeprazole 20 mg capsule,delayed 20 mg PO HS 11/18/21 11/18/21 History release oxycodone 5 mg tablet 5 mg PO PRN 11/18/21 History rivaroxaban 20 mg tablet (Xarelto) 20 mg PO Q24H 11/18/21 11/18/21 History Allergies Allergy/AdvReac Type Severity Reaction Status Date / Time sulfur [From Sulfur-8] Allergy Unknown Verified 11/04/21 09:47 Exam Narrative: Exam Narrative: General: She has some word substitutions, such as calling the EMT is nurses and will occasionally say a wrong syllable as part of a longer word. I suspect this is related to her glioblastoma and brain surgery. She otherwise seems clear without confusion. No acute distress. Awake alert oriented x3. HEENT: Normocephalic atraumatic, pupils equally round and reactive to light and accommodation. Oropharynx clear. Mucous membranes are moist. No cervical lymphadenopathy, thyromegaly or carotid bruits. No JVD. Cardiovascular: Regular rate and rhythm. No murmurs, gallops, or rubs. Chest: No increased work of breathing. Clear to auscultation bilaterally. No crackles or wheezes. Bandages on chest are clean, dry, and intact. NATALIYA drain has serosanguineous fluid. Abdomen: Bowel sounds present. Soft, nondistended, nontender. No hepatosplenomegaly or masses. Extremities: Trace bilateral pedal edema, no cyanosis or clubbing. Skin: No jaundice, no pallor, no rashes. Const: Vital Signs, click to edit/add: Vital Signs - 24 hr 11/18/21 09:12 11/18/21 10:29 11/18/21 10:30 Temperature 96.3 F L 98.0 F Pulse Rate 52 L 53 L Pulse Rate [Left P ulse Oximeter] 69 Respiratory Rate 20 20 20 Blood Pressure 110/61 106/57 L Blood Pressure [Le ft Upper Arm] 96/57 L Pulse Oximetry 96 94 96 Oxygen Delivery Me thod Room Air 11/18/21 10:45 11/18/21 11:14 11/18/21 11:53 Temperature 97.6 F 97.6 F 97.9 F Pulse Rate 70 63 73 Pulse Rate [Left P ulse Oximeter] Respiratory Rate 20 20 20 Blood Pressure 103/58 L 115/68 106/59 L Blood Pressure [Le ft Upper Arm] Pulse Oximetry 97 97 95 Oxygen Delivery Me thod 11/18/21 11:56 11/18/21 09:30 11/18/21 12:12 Temperature 97.6 F 97.8 F Pulse Rate 70 64 Pulse Rate [Left P ulse Oximeter] 67 Respiratory Rate 20 20 18 Blood Pressure 106/59 L 109/65 Blood Pressure [Le ft Upper Arm] 76/46 L Pulse Oximetry 96 Oxygen Delivery Me thod 11/18/21 09:39 11/18/21 09:45 11/18/21 09:56 Temperature Pulse Rate Pulse Rate [Left P ulse Oximeter] 67 62 62 Respiratory Rate 20 20 20 Blood Pressure Blood Pressure [Le ft Upper Arm] 92/50 L 97/55 L 92/55 L Pulse Oximetry 93 94 96 Oxygen Delivery Me thod Room Air Room Air Room Air 11/18/21 10:08 11/18/21 10:19 11/18/21 10:30 Temperature Pulse Rate Pulse Rate [Left P ulse Oximeter] 62 61 60 Respiratory Rate 20 28 H 20 Blood Pressure Blood Pressure [Le ft Upper Arm] 90/54 L 110/61 106/57 L Pulse Oximetry Oxygen Delivery Me thod Room Air 11/18/21 10:45 11/18/21 11:00 11/18/21 11:15 Temperature Pulse Rate Pulse Rate [Left P ulse Oximeter] 68 58 L 61 Respiratory Rate 14 18 18 Blood Pressure Blood Pressure [Le ft Upper Arm] 103/58 L 103/66 107/65 Pulse Oximetry 98 98 98 Oxygen Delivery Me thod Room Air Room Air Room Air 11/18/21 11:52 11/18/21 12:00 11/18/21 12:15 Temperature 97.9 F 97.8 F Pulse Rate Pulse Rate [Left P ulse Oximeter] 61 61 64 Respiratory Rate 20 20 18 Blood Pressure Blood Pressure [Le ft Upper Arm] 106/59 L 125/68 109/65 Pulse Oximetry 96 96 95 Oxygen Delivery Me thod Room Air Room Air Room Air 11/18/21 14:15 11/18/21 14:20 11/18/21 14:25 Temperature 98 F Pulse Rate 74 70 71 Pulse Rate [Left P ulse Oximeter] Respiratory Rate 14 14 14 Blood Pressure 106/66 121/78 122/75 Blood Pressure [Le ft Upper Arm] Pulse Oximetry 96 96 96 Oxygen Delivery Me thod Room Air Room Air Room Air 11/18/21 14:30 11/18/21 14:35 11/18/21 14:40 Temperature Pulse Rate 67 64 68 Pulse Rate [Left P ulse Oximeter] Respiratory Rate 12 12 12 Blood Pressure 126/73 115/64 126/53 L Blood Pressure [Le ft Upper Arm] Pulse Oximetry 95 95 95 Oxygen Delivery Me thod Room Air Room Air Room Air 11/18/21 14:45 Temperature Pulse Rate 60 Pulse Rate [Left P ulse Oximeter] Respiratory Rate 12 Blood Pressure 108/57 L Blood Pressure [Le ft Upper Arm] Pulse Oximetry 98 Oxygen Delivery Me thod Room Air Labs Labs: Short CBC 11/18/21 Range/Units 09:37 WBC 12.27 H (4.50-11.00) K/uL Hgb 10.8 L (12.0-16.0) gm/dL Hct 33.0 (33.0-51.0) % Plt Count 164 (140-440) K/uL BMP 11/18/21 09:37 Sodium 138 Potassium 4.1 Chloride 108 Carbon Dioxide 21 BUN 23 Creatinine 0.7 Glucose 134 H Calcium 8.3 L Ordering Physician: Aristeo Fisher M.D. Date of Service: 11/18/21 Procedure(s): CT cervical spine wo con Accession Number(s): [id number] cc: Provider,Not a Local ; Aristeo Fisher M.D.~ For Patients: As a result of the Cures Act, medical imaging exams and procedure reports are released immediately into your electronic medical record. You may view this report before your referring provider. If you have questions, please contact your health care provider. Indication: Fall Technique: Volumetric multidetector CT images of the cervical spine were obtained without the administration of IV contrast. Comparison: None available. Findings: The cervical vertebral body heights are grossly maintained. There is straightening of the normal cervical lordosis without significant spondylolisthesis. There is no displaced fracture or dislocation. There is mild degenerative disc disease with disc height loss and marginal osteophyte formation. There is mild facet arthrosis. The paraspinous soft tissues are grossly within normal limits. Impression: Mild degenerative changes of the cervical spine without acute osseous abnormality. Please note that all CT scans at this facility use dose modulation, iterative reconstruction, and/or weight-based dosing when appropriate to reduce radiation dose to as low as reasonably achievable. Dictated by Rafa Goins MD @ 11/18/2021 12:33:23 PM (Electronically Signed) Ordering Physician: Aristeo Fisher M.D. Date of Service: 11/18/21 Procedure(s): XR chest 1V portable Accession Number(s): [id number] cc: Provider,Not a Local ; Aristeo Fisher M.D.~ For Patients: As a result of the Cures Act, medical imaging exams and procedure reports are released immediately into your electronic medical record. You may view this report before your referring provider. If you have questions, please contact your health care provider. INDICATION: Fall and Bleeding TECHNIQUE: Chest 1 view COMPARISON: 07/26/2019 FINDINGS: Cardiovascular and mediastinum: Heart size and vasculature are normal in caliber and appearance. Lungs and pleural spaces: Lungs are clear. No sign of infiltrate or mass. No sign of pleural effusion. No pneumothorax. Bones and soft tissues: Right internal jugular approach port catheter is present. Postop changes to the right axilla. IMPRESSION: No acute findings. Dictated by Manpreet De León MD @ 11/18/2021 11:25:13 AM (Electronically Signed) Ordering Physician: Aristeo Fisher M.D. Date of Service: 11/18/21 Procedure(s): CT chest abdomen pelv w con Accession Number(s): [id number] cc: Provider,Not a Local ; Aristeo Fisher M.D.~ For Patients: As a result of the Cures Act, medical imaging exams and procedure reports are released immediately into your electronic medical record. You may view this report before your referring provider. If you have questions, please contact your health care provider. Indication: S/P RT MASTECTOMY 11/17/21 FALL. BLEEDING Technique: Postcontrast CT chest, abdomen and pelvis. 100 cc Isovue 370 intravenous contrast. Please note that all CT scans at this facility use dose modulation, iterative reconstruction, and/or weight-based dosing when appropriate to reduce radiation dose to as low as reasonably achievable. Comparison: None Findings: In the chest, postoperative changes of right mastectomy are present including expected mild subcutaneous emphysema. A right lateral approach drainage catheter is present within the subcutaneous fat of the right anterior hemithorax. Intact Port-A-Cath. There is a right lateral chest wall hematoma measuring 13.3 x 2.9 cm in transverse dimensions. This appears to connect to a more superior collection of ill-defined fluid near the upper right chest wall measuring 3.6 cm. There is no underlying rib fracture. No pneumothorax or pulmonary infiltrate. Mild dependent atelectasis noted in both lung bases. No mediastinal, hilar or left axillary adenopathy. Postoperative changes of right axillary lymph node dissection are present. No pleural or pericardial effusion. In the abdomen/pelvis, mild hepatic steatosis. No intrahepatic lesion. Gallbladder normal. Normal adrenal glands and kidneys. Normal spleen and pancreas. Incidental small hiatal hernia. No retroperitoneal or mesenteric adenopathy. Small 1 centimeter umbilical hernia containing fat. Fonseca catheter in the bladder. Mild colonic diverticulosis. No diverticulitis. No bowel obstruction or free intraperitoneal air. The appendix is normal. A right lower quadrant abdominal wall hernia is present containing fat measuring 2.3 cm located just lateral to the inferior rectus muscles. Mild degenerative changes are present. No fracture. Impression: Right chest wall subcutaneous hematoma status post mastectomy 1 day prior. Hematoma measures approximately 13.3 cm and extends into the right upper chest wall. No underlying rib fracture or pleural effusion. No traumatic injury to the abdomen or pelvis. 2.3 centimeter fat filled spigelian hernia on the right. Small hiatal hernia and umbilical hernia also noted. Reviewed with Dr. Moreno 12:30 p.m. 11/18/2021. Please note that all CT scans at this facility use dose modulation, iterative reconstruction, and/or weight-based dosing when appropriate to reduce radiation dose to as low as reasonably achievable. Dictated by Manpreet De León MD @ 11/18/2021 12:38:56 PM (Electronically Signed) Ordering Physician: Aristeo Fisher M.D. Date of Service: 11/18/21 Procedure(s): CT head/brain wo con Accession Number(s): [id number] cc: Provider,Not a Local ; Aristeo Fisher M.D.~ For Patients: As a result of the 21st Century Cures Act, medical imaging exams and procedure reports are released immediately into your electronic medical record. You may view this report before your referring provider. If you have questions, please contact your health care provider. Indication: Fall, brain cancer status post mastectomy Technique: Volumetric multidetector CT images of the head were obtained without the administration of low osmolar intravenous contrast. Comparison: CT head July 31, 2020 Findings: There is no intra-axial or extra-axial fluid collection. There is improved mass effect of the right frontal lobe from comparison exam. There is mild ex vacuo dilatation of the right lateral ventricle. There is a prior craniotomy and likely resection of previously seen right frontal lobe mass with encephalomalacia and peripheral leukomalacia. Otherwise, the brain parenchyma is preserved in attenuation and zamora-white differentiation. The orbits and their contents are grossly within normal limits. Postoperative changes of the right temporal bone status post craniotomy. The paranasal sinuses are clear. The mastoid air cells are well aerated. Impression: Prior craniotomy and encephalomalacia of the right frontal lobe status post resection of previously seen mass. No definite acute intracranial abnormality or new metastatic changes appreciated. Please note that all CT scans at this facility use dose modulation, iterative reconstruction, and/or weight-based dosing when appropriate to reduce radiation dose to as low as reasonably achievable. Dictated by Rafa Goins MD @ 11/18/2021 12:36:34 PM (Electronically Signed) EKG: Normal sinus rhythm, 60 beats per minute. Low voltage QRS. Septal infarct, age undetermined. Assessment and Plan Assessment and plan (1) Hematoma and contusion: Status: Acute (2) Syncope: Status: Acute (3) Acute hemorrhage: Problem comment: post op from right mastectomy Status: Acute (4) Breast cancer, right: Status: Acute (5) S/P right mastectomy: Problem comment: 11/17/2021 with right axillary slnb Status: Acute Plan Syncope secondary to hypovolemic state and acute hemorrhage. She is feeling much better after evacuation of hematoma and 2 units PRBCs. No further workup at this time. Monitor on telemetry overnight. Check hemoglobin this evening and again in the morning. Blood pressure is 112/68, hold amlodipine tonight and anticipate restarting it tomorrow if she does well overnight. Has h/o DVT for which she's been on Xarelto. She took her last dose of this last , 5 days ago. Continue to hold Xarelto due to hemorrhage this am. May be able to restart this by , if okay with surgery.
[2021-11-18] MEDS: LACTATED RINGERS 1000 ML 1,000 ML 125 ML IV (18:40)
--- NOTE | 2021-11-18 19:15 | PC.NURSE ---
Shift Summary: Patient arrived to room @ 1515. NATALIYA patent and draining. Port accessed on right chest, IV fluids running through left AC. Vitals stable and WNL. Denies pain, nausea now controlled, tolerating regular diet. Ambulated to bathroom with one assist, walker and gait belt. BM x1, has yet to void. Lung sounds clear. Gilbert wraps around chest, no drainage noted.
[2021-11-18 19:52] LABS: Hemoglobin* 11.3 gm/dL (12.0-16.0)
[2021-11-18] MEDS: levETIRAcetam 500 MG TABLET 1000 MG PO (20:01)
[2021-11-18] MEDS: OMEPRAZOLE 20 MG CAPSULE DR PO (20:01)
[2021-11-18] MEDS: cephALEXin 500 MG CAPSULE PO (20:01)
[2021-11-19] MEDS: LACTATED RINGERS 1000 ML 1,000 ML 125 ML IV (02:24)
[2021-11-19 03:00] VITALS: BP 129/81; PULSE 68; RESP 20; TEMP 37.3; O2SAT 96
--- NOTE | 2021-11-19 06:32 | PC.NURSE ---
Shift note: Pt denies lightheadedness and dizziness since arriving to the [facility] floor. She denies pain, no c/o nausea, tolerating PO food and fluids. Pt is voiding and passing gas, NATALIYA has moderate amount of bloody drainage. Pt ambulates with SBA and walker
--- NOTE | 2021-11-19 07:52 | P.DS_ITS ---
DS: Providers Provider Date Seen: 11/19/21 Date of admission: 11/18/21 Primary care physician: Not a Local Provider Admitting Clinician: Bambi Miguel MD Consults: 11/18/21 14:06 Consult to Physician [CONS] Routine Comment: Consulting Provider: Bradly Baig Has provider been notified: Yes 11/18/21 19:40 Consult to Physical Therapy [CONS] Routine Comment: Reason(s) for PT Consult:: Evaluate and Treat Any Restrictions?:: No Restrictions Attending Physician on discharge: Bambi Moreno MD Date of Discharge: 11/19/21 DS: Diagnosis Discharge Diagnosis (1) Hematoma and contusion: Status: Acute (2) Syncope: Status: Acute (3) Acute hemorrhage: Status: Acute Problem details: post op from right mastectomy (4) Breast cancer, right: Status: Acute (5) S/P right mastectomy: Status: Acute Problem details: 11/17/2021 with right axillary slnb (6) Asthma: Status: Chronic Problem details: Mild intermittent, uses albuterol MDI 3-4 times per month DS: Summary Hospital Course Hospital Course: Patient is initially seen, given her blood loss, she was immediately type and screen, saline lock along with her port was used. IV fluids are started, she received TXA, we held off on giving her Kcentra as she has been off the Xarelto for some time. I really wrapped her chest, with Gilbert wrap after I 1st ultrasound of the area and found an area greater than 8 x 10 cm of fluid, likely blood, on the posterior chest margin. Or superficial to the chest. I spoke to her surgeon Dr. Solares, she suggested given her unstable status that we talked our general surgeon which I did Dr. Moreno, Dr. Moreno attended her here in the resuscitation [place]. She rewrapped her chest, she agreed with the blood the fluids, will take her to the OR, she did want to get some imaging which I am in agreement with, because of a history the trauma. And the other medical concomitant issues. Her blood pressure has improved here, over 100 systolic. The patient underwent [address] chest abdomen pelvis, head and neck which did not show acute traumatic findings only a subcutaneous hematoma at the surgical site without active bleeding. She received 2 units of blood and went to the OR for hematoma evacuation there there was minimal active bleeding noted. She was then admitted to the floor with serial hemoglobins. On postop day 0 her hemoglobin was 10, however the next morning and it dropped to 9.8. It was stable at 9.9 without any sign of further bleeding. The next morning the patient states that she thought that she began bleeding throughout the night and then fell in the morning rather than having fallen and then injured her operative site and cause bleeding. However the hospitalist evaluated her syncope. No significant cardiac issues. PT did see the patient and she was able to ambulate without difficulty. She was deemed safe for discharge home to follow-up with her primary surgeon and establish oncology care at [facility]. Time Spent with Patient Time attestation: Total time spent providing and/or coordinating discharge services: Exam Narrative: Exam Narrative: General: No acute distress CV: Regular rate and rhythm Chest: Ecchymosis about the right chest wall. Incision without erythema. Serosanguineous fluid in drain, 70 mL out overnight. Const: Vital Signs, click to edit/add: Vital Signs - 24 hr 11/18/21 09:12 11/18/21 10:29 11/18/21 10:30 Temperature 96.3 F L 98.0 F Pulse Rate 52 L 53 L Pulse Rate [Left P ulse Oximeter] 69 Pulse Rate [Right Pulse Oximeter] Respiratory Rate 20 20 20 Blood Pressure 110/61 106/57 L Blood Pressure [Le ft Arm] Blood Pressure [Le ft Upper Arm] 96/57 L Pulse Oximetry 96 94 96 Oxygen Delivery [facility] Room Air 11/18/21 10:45 11/18/21 11:14 11/18/21 11:53 Temperature 97.6 F 97.6 F 97.9 F Pulse Rate 70 63 73 Pulse Rate [Left P ulse Oximeter] Pulse Rate [Right Pulse Oximeter] Respiratory Rate 20 20 20 Blood Pressure 103/58 L 115/68 106/59 L Blood Pressure [Le ft Arm] Blood Pressure [Le ft Upper Arm] Pulse Oximetry 97 97 95 Oxygen Delivery Sd thod 11/18/21 11:56 11/18/21 09:30 11/18/21 12:12 Temperature 97.6 F 97.8 F Pulse Rate 70 64 Pulse Rate [Left P ulse Oximeter] 67 Pulse Rate [Right Pulse Oximeter] Respiratory Rate 20 20 18 Blood Pressure 106/59 L 109/65 Blood Pressure [Le ft Arm] Blood Pressure [Le ft Upper Arm] 76/46 L Pulse Oximetry 96 Oxygen Delivery Me thod 11/18/21 09:39 11/18/21 09:45 11/18/21 09:56 Temperature Pulse Rate Pulse Rate [Left P ulse Oximeter] 67 62 62 Pulse Rate [Right Pulse Oximeter] Respiratory Rate 20 20 20 Blood Pressure Blood Pressure [Le ft Arm] Blood Pressure [Le ft Upper Arm] 92/50 L 97/55 L 92/55 L Pulse Oximetry 93 94 96 [facility] Delivery [facility] Room Air Room Air Room Air 11/18/21 10:08 11/18/21 10:19 11/18/21 10:30 Temperature Pulse Rate Pulse Rate [Left P ulse Oximeter] 62 61 60 Pulse Rate [Right Pulse Oximeter] Respiratory Rate 20 28 H 20 Blood Pressure Blood Pressure [Le ft Arm] Blood Pressure [Le ft Upper Arm] 90/54 L 110/61 106/57 L Pulse Oximetry Oxygen Delivery [facility] Room Air 11/18/21 10:45 11/18/21 11:00 11/18/21 11:15 Temperature Pulse Rate Pulse Rate [Left P ulse Oximeter] 68 58 L 61 Pulse Rate [Right Pulse Oximeter] Respiratory Rate 14 18 18 Blood Pressure Blood Pressure [Le ft Arm] Blood Pressure [Le ft Upper Arm] 103/58 L 103/66 107/65 Pulse Oximetry 98 98 98 Oxygen Delivery [facility] Room Air Room Air Room Air 11/18/21 11:52 11/18/21 12:00 11/18/21 12:15 Temperature 97.9 F 97.8 F Pulse Rate Pulse Rate [Left P ulse Oximeter] 61 61 64 Pulse Rate [Right Pulse Oximeter] Respiratory Rate 20 20 18 Blood Pressure Blood Pressure [Le ft Arm] Blood Pressure [Le ft Upper Arm] 106/59 L 125/68 109/65 Pulse Oximetry 96 96 95 Oxygen Delivery [facility] Room Air Room Air Room Air 11/18/21 14:15 11/18/21 14:20 11/18/21 14:25 Temperature 98 F Pulse Rate 74 70 71 Pulse Rate [Left P ulse Oximeter] Pulse Rate [Right Pulse Oximeter] Respiratory Rate 14 14 14 Blood Pressure 106/66 121/78 122/75 Blood Pressure [Le ft Arm] Blood Pressure [Le ft Upper Arm] Pulse Oximetry 96 96 96 Oxygen Delivery [facility] Room Air Room Air Room Air 11/18/21 14:30 11/18/21 14:35 11/18/21 14:40 Temperature Pulse Rate 67 64 68 Pulse Rate [Left P ulse Oximeter] Pulse Rate [Right Pulse Oximeter] Respiratory Rate 12 12 12 Blood Pressure 126/73 115/64 126/53 L Blood Pressure [Le ft Arm] Blood Pressure [Le ft Upper Arm] Pulse Oximetry 95 95 95 Oxygen Delivery [facility] Room Air Room Air Room Air 11/18/21 14:45 11/18/21 17:31 11/18/21 15:15 Temperature 96.8 F L 96.8 F L Pulse Rate 60 60 Pulse Rate [Left P ulse Oximeter] Pulse Rate [Right Pulse Oximeter] 60 Respiratory Rate 12 18 18 Blood Pressure 108/57 L Blood Pressure [Le ft Arm] 126/66 126/66 Blood Pressure [Le ft Upper Arm] Pulse Oximetry 98 96 Oxygen Delivery [facility] Room Air Room Air Room Air 11/18/21 15:48 11/18/21 15:30 11/18/21 15:45 Temperature 98 F 98.2 F Pulse Rate 72 Pulse Rate [Left P ulse Oximeter] Pulse Rate [Right Pulse Oximeter] 60 69 Respiratory Rate 18 18 Blood Pressure Blood Pressure [Le ft Arm] 135/80 128/77 Blood Pressure [Le ft Upper Arm] Pulse Oximetry 96 94 Oxygen Delivery Me [facility] Room Air Room Air 11/18/21 16:00 11/18/21 16:15 11/18/21 16:45 Temperature 98.2 F 99 F 98.8 F Pulse Rate Pulse Rate [Left P ulse Oximeter] Pulse Rate [Right Pulse Oximeter] 56 L 58 L 65 Respiratory Rate 18 18 16 Blood Pressure Blood Pressure [Le ft Arm] 123/67 124/61 111/69 Blood Pressure [Le ft Upper Arm] Pulse Oximetry 97 95 94 Oxygen Delivery [facility] Room Air Room Air Room Air 11/18/21 17:15 11/18/21 18:00 11/18/21 19:00 Temperature 98.8 F 98.7 F 99 F Pulse Rate Pulse Rate [Left P ulse Oximeter] Pulse Rate [Right Pulse Oximeter] 70 73 76 Respiratory Rate 16 18 20 Blood Pressure Blood Pressure [Le ft Arm] 148/86 H 112/68 127/79 Blood Pressure [Le ft Upper Arm] Pulse Oximetry 96 98 98 Oxygen Delivery [facility] Room Air Room Air Room Air 11/18/21 20:00 11/18/21 19:00 11/18/21 23:00 Temperature 99 F 99.6 F Pulse Rate 71 Pulse Rate [Left P ulse Oximeter] Pulse Rate [Right Pulse Oximeter] 80 76 Respiratory Rate 16 20 Blood Pressure Blood Pressure [Le ft Arm] 139/80 127/79 Blood Pressure [Le ft Upper Arm] Pulse Oximetry 97 98 Oxygen Delivery Me [facility] Room Air Room Air 11/18/21 23:00 11/19/21 03:00 Temperature 99.1 F 99.1 F Pulse Rate Pulse Rate [Left P ulse Oximeter] Pulse Rate [Right Pulse Oximeter] 71 68 Respiratory Rate 20 20 Blood Pressure Blood Pressure [Le ft Arm] 132/79 129/81 Blood Pressure [Le ft Upper Arm] Pulse Oximetry 96 96 Oxygen Delivery Me [facility] Room Air Room Air DS: Data Data Completed and Pending Labs on day of discharge: Labs from last 24 hours 11/18/21 11/18/21 11/18/21 19:36 10:39 09:37 WBC RBC Hgb 11.3 L Hct MCV MCH MCHC RDW Coeff of Moni Plt Count Neut % (Auto) Lymph % (Auto) [place] % (Auto) Eos % (Auto) Baso % (Auto) Neut # (Auto) Lymph # (Auto) [place] # (Auto) Eos # (Auto) Baso # (Auto) Abs Immat Gran (auto) INR APTT Sodium Potassium Chloride Carbon Dioxide BUN Creatinine Estimated Creat Clear Estimated GFR Glucose Calcium SARS-CoV-2 Ag (Rapid) negative Blood Type O Negative Antibody Screen NEGATIVE Crossmatch (AHG) See Detail 11/18/21 11/18/21 11/18/21 09:37 09:37 09:37 WBC 12.27 H RBC 3.83 L Hgb 10.8 L Hct 33.0 MCV 86 MCH 28 MCHC 33 RDW Coeff of Moni 13.1 Plt Count 164 Neut % (Auto) 87.9 H Lymph % (Auto) 5.7 L [place] % (Auto) 6.0 Eos % (Auto) 0.2 Baso % (Auto) 0.0 Neut # (Auto) 10.80 H Lymph # (Auto) 0.70 L [place] # (Auto) 0.70 Eos # (Auto) 0.00 Baso # (Auto) 0.00 Abs Immat Gran (auto) 0.03 INR 1.17 H APTT 24 Sodium 138 Potassium 4.1 Chloride 108 Carbon Dioxide 21 BUN 23 Creatinine 0.7 Estimated Creat Clear 78.41 Estimated GFR 102 Glucose 134 H Calcium 8.3 L SARS-CoV-2 Ag (Rapid) Blood Type Antibody Screen Crossmatch (AHG) Discharge Plan Discharge Disposition: Home, Self-Care Discharging Surgeon: Bambi Moreno Follow-Up Appointment: Follow up as scheduled with Dr. Solares on 11/25 Prescriptions: Continued amlodipine 5 mg tablet 5 mg PO DAILY albuterol sulfate [Ventolin HFA] 90 mcg/actuation HFA aerosol inhaler 2 puff INHALATION Q4H PRN Label Comments: INHALE 1 TO 2 PUFFS BY MOUTH EVERY 4 HOURS NEEDED FOR DIFFICULTY BREATHING. cephalexin 500 mg capsule 500 mg PO Q8H levetiracetam 1,000 mg tablet 1,000 mg PO BID omeprazole 20 mg capsule,delayed release(DR/EC) 20 mg PO HS oxycodone 5 mg tablet 5 mg PO PRN Held Xarelto 20 mg tablet 20 mg PO Q24H Hold Instructions: Resume on 11/22/21. Restart Xarelto on 11/22/21 Activity Level: No strenuous activity Activity Detail: No lifting over 20 lbs x 4 weeks (or follow restrictions per Dr. Solares, Empty and record drain output three times daily. Bring this with you to your appointment with Dr. Solares. Wear gilbert wrap until drain comes out Please call with fever, redness around incision, severe pain, lightheadedness or increased bloody drain output. Discharge Diet: Regular Patient Instructions: Surgical Site Infections (DC) Additional Instructions: patient may d/c after hgb returns this AM and cleared by PT Forms: Work/Release Restrictions Follow-up: Provider,Not a Local [Primary Care Provider] - (Keep all scheduled appointments that were previously scheduled) Discharge Orders: Discharge Order (Routine); Ordered 11/19/21 Ordered By: Bambi Moreno
[2021-11-19] MEDS: levETIRAcetam 500 MG TABLET 1000 MG PO (09:02)
[2021-11-19] MEDS: cephALEXin 500 MG CAPSULE PO (09:02)
[2021-11-19 09:22] VITALS: BP 145/94; PULSE 76; RESP 18; TEMP 37.2; O2SAT 95
[2021-11-19 09:23] VITALS: PULSE 76; RESP 18
[2021-11-19 10:42] LABS: Hematocrit 29.7 % (33.0-51.0); Hemoglobin* 9.8 gm/dL (12.0-16.0); Immature Granulocytes Abs Auto 0.01 K/uL (0.00-0.30); Lymphocytes Percent Auto 11.8 % (20-44); Mean Corpuscular HGB Conc 33 gm/dL (32-36); Mean Corpuscular Hemoglobin 29 pg (26-34); Mean Corpuscular Volume 87 fL (80-100); Monocytes Percent Auto 6.4 % (0.0-11.0); Neutrophils Percent Auto 81.7 % (42.0-72.0); Platelet Count* 120 K/uL (140-440); Red Blood Count 3.43 m/uL (4.00-5.20); White Blood Count* 7.47 K/uL (4.50-11.00)
[2021-11-19 10:43] LABS: Slide Review Reflex No
[2021-11-19 10:45] VITALS: PULSE 82
[2021-11-19 11:17] LABS: Hemoglobin* 9.9 gm/dL (12.0-16.0)
--- NOTE | 2021-11-19 11:40 | PC.NURSE ---
Pt denies pain, or nausea. Hgb done at 0700 and 1100, updated MD. Dr. Moreno will come at lunch to review plan with Pt. PT eval done and pt is safe to return home. Pt report missing sweatpants and reported this to charge nurse Magali Gallagher. Report given to Ray.
--- NOTE | 2021-11-19 12:36 | PC.NURSE ---
Discharge: Patient pleasant and cooperative. Up independently in room, tolerating regular diet. Patient and able to manage NATALIYA drain at home. Port deaccessed, IV removed with catheter intact. Discharge instructions given, questions answered as needed, medications reviewed. Patient discharged from unit @ 1225 via wheelchair, friend picked up from ED entrance.
== END 2021-11-19 12:25 | disposition home or self-care (01) ==
LOC: ED 12:38 → SS 12:57 → MEDSURG 15:16
PROVIDERS: Emergency Provider Family Medicine; Visit Provider Surgery
PROC: (CPT 21501; principal; 2021-11-18 12:20)
DX: L76.22 Postprocedural hemorrhage of skin and subcutaneous tissue following other procedure (principal); S20.211A Contusion of right front wall of thorax, initial encounter; R55 Syncope and collapse; D62 Acute posthemorrhagic anemia; W19.XXXA Unspecified fall, initial encounter; Y92.009 Unspecified place in unspecified non-institutional (private) residence as the place of occurrence of the external cause; Z90.11 Acquired absence of right breast and nipple; G47.33 Obstructive sleep apnea (adult) (pediatric)
CPT/HCPCS: 21501; 00400; 36415; 36430; 70450; 71045; 71260; 72125; 74177; 80048; 85018; 85025; 85610; 85730; 86850; 86900; 86901; 86922; 87426; 93005; 97116; 97161; 99140; 99285; 99291; A9270; J0330; J0690; J1100; J2405; J2704; J3010; J3490; J7030; J7120; P9016; Q9967